=== PATIENT | female | born 1995 | race Caucasian/White ===

== ENCOUNTER 2020-06-28 08:03 | Day surgery (SDC) | payer OTHER ==
[~2020-06-28 08:03] MED LIST: Lactated Ringers 1,000 ML IV SCH
--- NOTE | 2020-06-28 08:25 | PCM.PREANE ---
Preanesthetic Assessment - Anesthesia/Transfusion/Family Hx Anesthesia History: Prior Anesthesia Without Reaction Family History of Anesthesia Reaction: No Transfusion History: No Prior Transfusion(s) Intubation History: Unknown - Review of Systems General: No Symptoms Pulmonary: No Symptoms Cardiovascular: No Symptoms Gastrointestinal: No Symptoms Neurological: No Symptoms Other: Reports: None - Physical Assessment Height: 5 ft 7 in Weight: 51.256 kg ASA Class: 1 Mental Status: Alert & Oriented x3 Airway Class: Mallampati = 1 Dentition: Reports: Normal Dentition Thyro-Mental Finger Breadths: 3 Mouth Opening Finger Breadths: 3 ROM/Head Extension: Full Lungs: Clear to Auscultation, Normal Respiratory Effort Cardiovascular: Regular Rate, Regular Rhythm - Lab Values: Laboratory Last Values Urine HCG, Qual NEGATIVE (NEGATIVE) 06/28/20 07:40 - Allergies Allergies/Adverse Reactions: Allergies Allergy/AdvReac Type Severity Reaction Status Date / Time No Known Allergies Allergy Verified 06/28/20 07:54 - Blood Blood Available: No - Anesthesia Plan Pre-Op Medication Ordered: None - Acknowledgements Anesthesia Type Planned: General Anesthesia Pt an Appropriate Candidate for the Planned Anesthesia: Yes Alternatives and Risks of Anesthesia Discussed w Pt/Guardian: Yes Pt/Guardian Understands and Agrees with Anesthesia Plan: Yes PreAnesthesia Questionnaire HEENT History: Reports: None Cardiovascular History: Reports: None Respiratory History: Reports: None Gastrointestinal History: Reports: Gastritis, Other (See Below) Other Gastrointestinal History: hx gastric ulcers Genitourinary History: Reports: None BIOMETRICIAN History: Reports: Other (See Below) (infected Bartholins cyst) Musculoskeletal History: Reports: Other (See Below) Neurological History: Reports: None Psychiatric History: Reports: None Endocrine/Metabolic History: Reports: None Hematologic History: Reports: None Immunologic History: Reports: None Oncologic (Cancer) History: Reports: None Dermatologic History: Reports: None - Past Surgical History Head Surgeries/Procedures: Reports: None HEENT Surgical History: Reports: Oral Surgery Other HEENT Surgeries/Procedures: wisdom teeth extraction Cardiovascular Surgical History: Reports: None Respiratory Surgical History: Reports: None GI Surgical History: Reports: Colonoscopy, EGD Female Surgical History: Reports: None Endocrine Surgical History: Reports: None Neurological Surgical History: Reports: None Musculoskeletal Surgical History: Reports: Other (See Below) Other Musculoskeletal Surgeries/Procedures:: reconstructive surgery to both feet Oncologic Surgical History: Reports: None Dermatological Surgical History: Reports: None - HOME MEDS Home Medications: Home Meds Doxycycline [Vibramycin] 100 mg PO BID 06/28/20 [History] Hydrocodone/Acetaminophen [Hydrocodone-Acetamin 5-325 mg] 1 - 2 tab PO ASDIRECTED PRN 06/28/20 [History] - CURRENT (IN HOUSE) MEDS Current Meds: Current Medications Lactated Ringer's (Ringers, Lactated) 1,000 mls @ 100 mls/hr IV ASDIRECTED KATHERINE
[2020-06-28] MEDS ORDERED: fentaNYL 100 MCG/2 ML SDV ONE ×2 (09:01→09:51)
[2020-06-28] MEDS ORDERED: Midazolam 1 MG/ML 2 ML SDV ONE (09:03)
[2020-06-28] MEDS ORDERED: Propofol 200 MG/20 ML SDV ONE (09:03)
[2020-06-28] MEDS ORDERED: Ondansetron 4 MG/2 ML SDV ONE (09:04)
[2020-06-28] MEDS ORDERED: Ketorolac 30 MG/ML SDV ONE (10:00)
[2020-06-28] MEDS ORDERED: Acetaminophen 1,000 MG in Premix Bag 1 BAG IV PRN (10:06)
[2020-06-28] MEDS ORDERED: fentaNYL 100 MCG/2 ML SDV IVPUSH PRN (10:06)
--- NOTE | 2020-06-28 10:30 | PCM.OPNOTE ---
- General Post-Op/Procedure Note Date of Surgery/Procedure: 06/28/20 Operative Procedure(s): Marsupialization of bartholin abscess Findings: Left bartholin abscess draining purulent fluid. Pre Op Diagnosis: Bartholin abscess Post-Op Diagnosis: Same Anesthesia Technique: General LMA Primary Surgeon: Belem Tracey Secondary Surgeon: Veronica Horton Pathology: Abscess fluid sent for culture and sensivities Fluid Replacement, Intraop: 800 Output, Urine Amount: 30 EBL in mLs: 25 Complications: none known Condition: Good
--- NOTE | 2020-06-28 11:51 | PCM.POSTAN ---
POST ANESTHESIA ASSESSMENT - MENTAL STATUS Mental Status: Alert, Oriented - VITAL SIGNS Vital Signs: Last Vital Signs Temp 36.7 C 06/28/20 10:56 Pulse 85 06/28/20 10:56 Resp 14 06/28/20 10:56 BP 119/68 06/28/20 10:56 Pulse Ox 100 06/28/20 10:56 - RESPIRATORY Respiratory Status: Respiratory Rate WNL, Airway Patent, O2 Saturation Stable - CARDIOVASCULAR CV Status: Pulse Rate WNL, Blood Pressure Stable - GASTROINTESTINAL GI Status: No Symptoms - PAIN Pain Score: 2 - POST OP HYDRATION Hydration Status: Adequate & Stable - OBSERVATIONS Free Text/Narrative:: No anesthesia problems
--- NOTE | 2020-06-28 11:51 | PCM48HPAN ---
Post Anesthesia Note - EVALUATION WITHIN 48HRS OF ANESTHETIC Vital Signs in Normal Range: Yes Patient Participated in Evaluation: Yes Respiratory Function Stable: Yes Airway Patent: Yes Cardiovascular Function Stable: Yes Hydration Status Stable: Yes Pain Control Satisfactory: Yes Nausea and Vomiting Control Satisfactory: Yes Mental Status Recovered: Yes Vital Signs: Last Vital Signs Temp 36.7 C 06/28/20 10:56 Pulse 63 06/28/20 11:26 Resp 16 06/28/20 11:26 BP 116/63 06/28/20 11:26 Pulse Ox 97 06/28/20 11:26 - COMMENTS/OBSERVATIONS Free Text/Narrative:: No anesthesia problems
--- NOTE | 2020-06-28 12:05 | OR ---
SURGEON: Belem Tracey M.D. DATE OF PROCEDURE: 06/28/2020 PREOPERATIVE DIAGNOSIS: Left Bartholin gland abscess. POSTOPERATIVE DIAGNOSIS: Left Bartholin gland abscess. PROCEDURE: Incision and drainage and marsupialization of left Bartholin cyst abscess. COMPLICATIONS: None known. DISPOSITION: Stable to Recovery. PRIMARY SURGEON: Belem Tracey M.D. OCCUPATIONAL THERAPIST PER DIEM: Veronica Horton MS-4 ANESTHESIA: LMA. ESTIMATED BLOOD LOSS: 25 mL. FLUIDS: 800 mL of crystalloid. SPECIMENS: Aerobic and anaerobic culture and Gram stain. BRIEF HISTORY: This is a 24-year-old female. She presented to the emergency room in [place] with pain in the left labia. She has a known history of a Bartholin's abscess in the past. It has not previously been drained. It was treated with antibiotics. She has been on doxycycline for greater than 5 days, and it has continued to worsen and be tender and painful. I did offer incision and drainage in the office versus Word catheter placement versus incision and drainage with marsupialization in the OR, and she requests to proceed with marsupialization with incision and drainage in the OR with risks discussed including bleeding, infection, injury to surrounding organs, pelvic pain, dyspareunia, and anesthesia risk. Understanding these risks, she does desire to proceed. DESCRIPTION OF PROCEDURE: With the patient in dorsal lithotomy position, under adequate general LMA analgesia, the perineum and vagina were prepped with Betadine and draped in usual fashion for vaginal surgery. SCDs were in place. The bladder had been drained with a straight cath, and an appropriate time-out was held. The left lower perineum and labia were palpated. Note was made that external to the introitus, the abscess was beginning to drain. The purulent drainage was expressed and collected for aerobic and anaerobic culture. I then identified the site at approximately 5 o'clock on the internal vagina just inside of the hymenal ring and using a 15 blade scalpel incised until the purulent drainage expressed, and this incision site was slightly enlarged. The rose of which were grasped with Allis clamps. The abscess was completely drained and then copiously irrigated with approximately 500 mL of 1:1 hydrogen peroxide to water. Once this was completed, the abscess wall or cyst wall was marsupialized and attached to the vaginal mucosa using multiple interrupted [id number] sutures of 4-0 Monocryl. A finger could be palpated into the abscess and cyst area. There was excellent drainage. The area was hemostatic. Therefore, all the instruments were removed from the vagina. Final sponge, needle, and instrument counts were reported as correct. There were no known complications. The patient was transferred to Recovery in good condition. NATY DE LEON /[id number]
== END 2020-06-28 12:15 | disposition home or self-care (01) ==
LOC: MW.SDS 08:03
PROVIDERS: ATTEND Obstetrics & Gynecology
DX: N75.1 Abscess of Bartholin's gland (principal); Z01.812 Encounter for preprocedural laboratory examination; Z20.822 Contact with and (suspected) exposure to COVID-19; Z98.890 Other specified postprocedural states
CPT/HCPCS: 56440; 81025; 87070; 87075; 87077; 87186; 87205; 87635; J1885; J2250; J2405; J2704; J7120; 00940; J3010; U0002